=== PATIENT | female | born 1985 | race Caucasian/White ===

== ENCOUNTER 2016-06-26 16:42 | Outpatient (CLI) | payer MEDICAID | END 2016-06-26 16:43 | disposition home or self-care (01) | DX: R10.2 Pelvic and perineal pain (principal); Z90.710 Acquired absence of both cervix and uterus ==

== ENCOUNTER 2017-04-25 15:17 | Outpatient (CLI) | payer MEDICAID ==
--- NOTE | 2017-04-26 11:52 | XRAY Report ---
DATE OF SERVICE: 04/25/2017 BILATERAL FEET: 04/25/2017 COMPARISON: None. INDICATION: Bilateral foot pain. Calcaneus pain without trauma, left worse than right. TECHNIQUE: Three views of each foot. FINDINGS: Normal alignment. No evidence of acute fracture. No degenerative changes. Soft tissues grossly unremarkable. IMPRESSION: NEGATIVE FEET. TD: 04[facility]25/2017 18:29 [facility]
== END 2017-04-25 15:18 | disposition home or self-care (01) ==
LOC: DI 15:17
PROVIDERS: ATTEND Podiatrist
DX: M79.672 Pain in left foot (principal); M79.671 Pain in right foot

== ENCOUNTER 2017-07-31 17:16 | Emergency (ER) | payer MEDICAID ==
--- NOTE | 2017-07-31 18:03 | ED Physician Documentation ---
PD HPI ABD PAIN - Stated complaint Stated Complaint: RUQ PX - Chief complaint Chief Complaint: Abd Pain - History obtained from History obtained from: Patient - History of Present Illness Timing - onset: Last night (about 4 am, abrupt onset and has persisted. Worse with attempted eating.) Timing - duration: Hours Timing - details: Abrupt onset, Still present Quality: Aching, Sharp, Pain Location: RUQ Radiation: Upper back Improved by: No: Eating, Vomiting Worsened by: Eating, Moving, Palpation. No: Breathing Associated symptoms: Nausea, Vomiting (couple times). No: Fever, Hematemesis, Diarrhea, Dysuria Similar symptoms before: Has not had sx before (not this pain but does get heartburn intermittently) Recently seen: Not recently seen Review of Systems Constitutional: denies: Fever, Chills Nose: denies: Rhinorrhea / runny nose, Congestion Throat: denies: Sore throat Respiratory: denies: Cough GI: reports: Abdominal Pain, Nausea. 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 HEENT: Tonsil/Adenoidectomy - Present Medications Home Medications: Ambulatory Orders Medication Instructions Recorded Confirmed Famotidine [Pepcid] 20 mg PO ONCE #20 tablet 07/31/17 Fluticasone [Flonase] 07/31/17 Loratadine 10 mg PO 07/31/17 Sucralfate 1 gm PO QID #20 tablet 07/31/17 Tramadol HCl 50 mg PO Q6H PRN #20 tablet 07/31/17 - Allergies Allergies/Adverse Reactions: Allergies Allergy/AdvReac Type Severity Reaction Status Date / Time Penicillins AdvReac Intermediate Nausea Verified 10/12/15 13:59 - Social History Does the pt smoke?: No Smoking Status: Never smoker Does the pt drink ETOH?: No Does the pt have substance abuse?: No - Immunizations Immunizations are current?: Yes PD ED PE NORMAL - Vitals Vital signs reviewed: Yes - General General: Alert and oriented X 3, Well developed/nourished, Other (appears in pain in upper abd. ) - HEENT HEENT: PERRL, EOMI (nonicteric), Pharynx benign - Neck Neck: Supple, no meningeal sign, No adenopathy - Cardiac Cardiac: RRR, No murmur - Respiratory Respiratory: Clear bilaterally - Abdomen Abdomen: Normal bowel sounds, Non distended, No organomegaly, Other (tender RUQ with local guarding and rebound. No percussion tenderness. She is markedly obese. ) - Female Female : Deferred - Rectal Rectal: Deferred - Derm Derm: Normal color, Warm and dry - Extremities Extremities: No tenderness to palpate, Normal ROM s pain, No edema, No calf tenderness / cord - Neuro Neuro: Alert and oriented X 3, No motor deficit, Normal speech Results - Vitals Vitals: Oxygen O2 Source Room air - Labs Labs: Laboratory Tests 07/31/17 07/31/17 07/31/17 18:35 18:35 19:47 WBC 11.3 H RBC 4.67 Hgb 13.0 Hct 38.9 MCV 83.3 MCH 27.8 MCHC 33.3 RDW 13.2 Plt Count 271 MPV 8.0 Neut # 9.9 H Lymph # 0.9 L [place] # 0.4 Eos # 0.0 Baso # 0.0 Absolute Nucleated RBC 0.00 Nucleated RBC % 0.0 Sodium 133 L Potassium 3.5 Chloride 103 Carbon Dioxide 21 Anion Gap 9.0 BUN 16 Creatinine 0.8 Estimated GFR (MDRD) 83 L Glucose 87 Calcium 8.3 L Total Bilirubin 0.9 AST 23 ALT 26 Alkaline Phosphatase 58 Total Protein 7.6 Albumin 4.3 Globulin 3.3 Albumin/Globulin Ratio 1.3 Lipase 17 L Urine Color ORANGE Urine Clarity CLEAR Urine pH 5.5 Ur Specific [place] >=1.030 H Urine Protein TRACE Urine Glucose (UA) NEGATIVE Urine Ketones 40 H Urine Occult Blood NEGATIVE Urine Nitrite NEGATIVE Urine Bilirubin NEGATIVE Urine Urobilinogen 0.2 (NORMAL) Ur Leukocyte Esterase NEGATIVE Ur Microscopic Review NOT INDICATED Urine Culture Comments NOT INDICATED - Rads (name of study) RUQ U/S Radiology: Prelim report reviewed (normal gallbladder study) PD MEDICAL DECISION MAKING - ED course Complexity details: re-evaluated patient (improved with pain meds and antiemetics. ), considered differential (Seemed like it would be gallbladder but US is normal and labs are okay, so presume gastritis/duodenitis. ), d/w patient Departure - Departure Disposition: 01 Home, Self Care Clinical Impression: Upper abdominal pain, Gastritis/duodenitis Condition: Stable Record reviewed to determine appropriate education?: Yes Instructions: ED Gastritis Follow-Up: Chinmay Rios MD [Primary Care Provider] - Prescriptions: Famotidine [Pepcid] 20 mg PO ONCE #20 tablet Sucralfate 1 gm PO QID #20 tablet Tramadol HCl 50 mg PO Q6H PRN #20 tablet PRN Reason: Pain Comments: Your ultrasound appears normal. The blood tests are normal as well. Does not appear to be gallbladder, liver or pancreas. I presume then the stomach or the initial part of the intestine call the duodenum is irritated. Use famotidine daily for the next couple of weeks. Add sucralfate to coat the area 3 or 4 times a day for the next 5 or 6 days. Add Tylenol or tramadol if needed for pain. Recheck if not improved over the next several days to week. Discharge Date/Time: 07/31/17 21:03
[2017-07-31] MEDS ORDERED: HYDROmorphone 1 MG/ML CARPUJECT IVP STA (18:23)
[2017-07-31] MEDS ORDERED: ONDANSETRON 4 MG/2 ML VIAL IVP STA (18:23)
[2017-07-31 18:44] LABS: BASOPHILS % (AUTO) 0.3 %; EOSINOPHILS % (AUTO) 0.2 %; LYMPHOCYTES # (AUTO) 0.9 10^3/uL (1.5-3.5); LYMPHOCYTES % (AUTO) 7.6 %; MEAN CORPUSCULAR HEMOGLOBIN 27.8 pg (27.0-31.0); MEAN CORPUSCULAR HGB CONC 33.3 g/dL (32.0-36.0); MEAN CORPUSCULAR VOLUME 83.3 fL (81.0-99.0); MONOCYTES # (AUTO) 0.4 10^3/uL (0.0-1.0); MONOCYTES % (AUTO) 3.5 %; NEUTROPHILS # (AUTO) 9.9 10^3/uL (1.5-6.6); NEUTROPHILS % (AUTO) 88.4 %; PLT - PLATELET COUNT 271 10^3/uL (130-450); RED BLOOD COUNT 4.67 10^6/uL (4.20-5.40); RED CELL DISTRIBUTION WIDTH 13.2 % (12.0-15.0); WHITE BLOOD COUNT 11.3 x10^3/uL (4.8-10.8)
[2017-07-31 18:57] LABS: ALBUMIN 4.3 g/dL (3.2-5.5); ALBUMIN/GLOBULIN RATIO 1.3 (1.0-2.2); BILIRUBIN,TOTAL 0.9 mg/dL (0.2-1.0); CALCIUM 8.3 mg/dL (8.5-10.3); CREATININE 0.8 mg/dL (0.4-1.0); TOTAL PROTEIN 7.6 g/dL (6.7-8.2)
--- NOTE | 2017-07-31 19:47 | Ultrasound Preliminary Report ---
Exam: US ABDOMEN LIMITED IMPRESSION: 1. Hepatomegaly with fatty infiltration. 2. No cholelithiasis nor cholecystitis. [facility] SITE ID: [id number]
--- NOTE | 2017-07-31 19:51 | Ultrasound Report ---
EXAM: ABDOMEN ULTRASOUND LIMITED, RUQ EXAM DATE: 07/31/2017 07:07 PM. CLINICAL HISTORY: Right upper quadrant pain which began earlier today. COMPARISON: None. TECHNIQUE: Real-time scanning was performed with static images obtained. FINDINGS: Liver: Uniform increased echogenicity. 20.5 cm. Main portal vein flow: Hepatopetal. Gallbladder: Normal. No stones, wall thickening, or sonographic Miranda's sign. Biliary System: CBD measures 4.0 mm. No intrahepatic or extrahepatic ductal dilatation. Other: Normal right kidney. No free fluid. IMPRESSION: 1. Hepatomegaly with fatty infiltration. 2. No cholelithiasis nor cholecystitis. [facility] Referring Provider Line: [phone] SITE ID: [id number]
[2017-07-31 20:01] LABS: GLUCOSE, URINE (UA) NEGATIVE (NEGATIVE); KETONES,URINE (UA) 40 mg/dL (NEGATIVE); LEUKOCYTE ESTERASE, URINE NEGATIVE (NEGATIVE); NITRITE,URINE NEGATIVE (NEGATIVE); OCCULT BLOOD,URINE NEGATIVE (NEGATIVE); PH,URINE 5.5 PH (5.0-7.5); PROTEIN,URINE TRACE mg/dL (NEGATIVE); UROBILINOGEN,URINE 0.2 (NORMAL) E.U./dL (NORMAL)
[2017-07-31 20:15] LABS: BILIRUBIN,URINE NEGATIVE (NEGATIVE); CLARITY,URINE CLEAR (CLEAR); ICTOTEST,URINE NEGATIVE
[2017-07-31] MEDS ORDERED: FAMOTIDINE 20 MG TABLET PO STA (20:46)
[2017-07-31] MEDS ORDERED: SUCRALFATE 1 GM/10 ML UDC PO STA (20:46)
[2017-07-31 21:27] VITALS: BP 138/76
== END 2017-07-31 21:03 | disposition home or self-care (01) ==
LOC: ED 17:16
DX: R10.11 Right upper quadrant pain (principal); K29.70 Gastritis, unspecified, without bleeding; K29.80 Duodenitis without bleeding
CPT/HCPCS: 36415; 76705; 80053; 81003; 83690; 85025; 96374; 99283; A9270; J1170; 81001; 87086

== ENCOUNTER 2018-02-13 16:06 | Emergency (ER) | payer MEDICAID ==
--- NOTE | 2018-02-13 18:21 | ED Physician Documentation ---
PD HPI URI - Stated complaint Stated Complaint: FEVER/LUNG PX/RT EAR PX/COUGH - Chief complaint Chief Complaint: Fever - History obtained from History obtained from: Patient - History of Present Illness Timing - onset: How many weeks ago (1) Timing duration: Weeks (1) Timing details: Gradual onset, Still present (was ill with congestion and cough, fevers, malaise last week and was feeling improved for 1-2 days, then with fevers and aches again and right ear pain now.) Associated symptoms: Fever, Chills, Ear pain (right), Sore throat, Dry cough. No: Nasal congestion, Swollen nodes Contributing factors: No: Sick contact, COPD / asthma Similar symptoms before: Has not had sx before Recently seen: Not recently seen Review of Systems Constitutional: reports: Fever, Chills, Myalgias Ears: reports: Ear pain (for 1-2 days) Nose: reports: Rhinorrhea / runny nose, Congestion. denies: Sinus pressure / pain Throat: reports: Sore throat Respiratory: reports: Cough GI: denies: Nausea, Vomiting, Diarrhea Neurologic: reports: Generalized weakness. 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 HEENT: Tonsil/Adenoidectomy - Present Medications Home Medications: Ambulatory Orders Medication Instructions Recorded Confirmed Azithromycin [Zithromax] 250 mg PO DAILY #4 tablet 02/13/18 Benzonatate [Tessalon] 100 mg PO TID PRN #25 capsule 02/13/18 Dexamethasone [Decadron] 4 mg PO DAILY #5 tablet 02/13/18 guaiFENesin/CODEINE [Robitussin AC] 10 ml PO Q6H PRN #240 ml 02/13/18 - Allergies Allergies/Adverse Reactions: Allergies Allergy/AdvReac Type Severity Reaction Status Date / Time Penicillins AdvReac Intermediate Nausea Verified 02/13/18 16:13 - Social History Does the pt smoke?: No Smoking Status: Never smoker Does the pt drink ETOH?: No Does the pt have substance abuse?: No - Immunizations Immunizations are current?: Yes - POLST Patient has POLST: No PD ED PE NORMAL - Vitals Vital signs reviewed: Yes - General General: Alert and oriented X 3, Well developed/nourished - HEENT HEENT: Pharynx benign. No: Ears normal (left is good; right with redness and distorted landmarks.) - Neck Neck: Supple, no meningeal sign, No adenopathy - Cardiac Cardiac: RRR, No murmur - Respiratory Respiratory: Clear bilaterally - Derm Derm: Normal color, Warm and dry, No rash Results - Vitals Vitals: Oxygen O2 Source Room air - Labs Labs: Laboratory Tests 02/13/18 16:15 Influenza A (Rapid) Negative Influenza B (Rapid) Negative PD MEDICAL DECISION MAKING - ED course Complexity details: considered differential, d/w patient Departure - Departure Disposition: 01 Home, Self Care Clinical Impression: Ear infection Upper respiratory infection Qualifiers: URI type: unspecified URI Qualified Code(s): J06.9 - Acute upper respiratory infection, unspecified Condition: Stable Record reviewed to determine appropriate education?: Yes Instructions: ED Upper Resp Infec Abx Tx Follow-Up: Chinmay Rios MD [Primary Care Provider] - Prescriptions: Azithromycin [Zithromax] 250 mg PO DAILY #4 tablet Benzonatate [Tessalon] 100 mg PO TID PRN #25 capsule PRN Reason: Cough Dexamethasone [Decadron] 4 mg PO DAILY #5 tablet guaiFENesin/CODEINE [Robitussin AC] 10 ml PO Q6H PRN #240 ml PRN Reason: Cough Comments: I would suggest using your albuterol inhaler 2-3 puffs 4 times a day for the next several days to week to help reduce cough and improve breathing. Add Decadron steroid anti-inflammatory daily. You do have signs of an ear infection on that one side so was also given some Zithromax antibiotic for that. Overall is likely a viral illness. For the cough itself he can use Tessalon and cough medicine to try to improve that. Recheck if not improving over the next several days to week. Discharge Date/Time: 02/13/18 19:14
[2018-02-13] MEDS ORDERED: BENZONATATE 100 MG CAPSULE PO STA (18:41)
[2018-02-13] MEDS ORDERED: DEXAMETHASONE 10 MG/ML VIAL PO STA (18:41)
[2018-02-13] MEDS ORDERED: AZITHROMYCIN 250 MG TABLET PO STA (18:47)
[2018-02-13 19:13] VITALS: BP 138/90
== END 2018-02-13 19:14 | disposition home or self-care (01) ==
LOC: ED 16:06
DX: H66.90 Otitis media, unspecified, unspecified ear (principal); J06.9 Acute upper respiratory infection, unspecified
CPT/HCPCS: 87275; 87276; 99283; A9270

== ENCOUNTER 2020-10-28 11:41 | Emergency (ER) | payer BC, MEDICAID ==
[2020-10-28 12:01] VITALS: BP 171/116
[2020-10-28 12:15] LABS: BASOPHILS % (AUTO) 0.3 %; EOSINOPHILS # (AUTO) 0.1 10^3/uL (0.0-0.7); EOSINOPHILS % (AUTO) 1.9 %; HCT - HEMATOCRIT 43.5 % (37.0-47.0); HGB - HEMOGLOBIN 14.5 g/dL (12.0-16.0); LYMPHOCYTES # (AUTO) 1.4 10^3/uL (1.5-3.5); LYMPHOCYTES % (AUTO) 22.7 %; MEAN CORPUSCULAR HEMOGLOBIN 28.9 pg (27.0-31.0); MEAN CORPUSCULAR HGB CONC 33.3 g/dL (32.0-36.0); MEAN CORPUSCULAR VOLUME 86.8 fL (81.0-99.0); MEAN PLATELET VOLUME 9.3 fL (7.9-10.8); MONOCYTES # (AUTO) 0.5 10^3/uL (0.0-1.0); MONOCYTES % (AUTO) 7.6 %; NEUTROPHILS # (AUTO) 4.1 10^3/uL (1.5-6.6); PLT - PLATELET COUNT 256 10^3/uL (130-450); RED BLOOD COUNT 5.01 10^6/uL (4.20-5.40); RED CELL DISTRIBUTION WIDTH 12.7 % (12.0-15.0); WHITE BLOOD COUNT 6.2 x10^3/uL (4.8-10.8)
[2020-10-28 12:30] LABS: ALBUMIN 4.1 g/dL (3.2-5.5); ALBUMIN/GLOBULIN RATIO 1.1 (1.0-2.2); BILIRUBIN,TOTAL 0.6 mg/dL (0.2-1.0); CALCIUM 8.9 mg/dL (8.5-10.3); CREATININE 0.9 mg/dL (0.4-1.0); POTASSIUM 3.6 mmol/L (3.5-5.0); TOTAL PROTEIN 7.7 g/dL (6.7-8.2)
[2020-10-28] MEDS ORDERED: ONDANSETRON ODT 4 MG TABLET TL STA (14:41)
[2020-10-28] MEDS ORDERED: DICYCLOMINE 10 MG CAPSULE PO STA (14:41)
--- NOTE | 2020-10-28 14:41 | ED Physician Documentation ---
PD HPI ABD PAIN - Stated complaint Stated Complaint: N/V/D FEVER - Chief complaint Chief Complaint: Abd Pain - History obtained from History obtained from: Patient - Additional information Additional information: She and her girlfriend at the same time became sick 2 days ago with stomach cramps, fever, vomiting and diarrhea. She is actually a lot better today, but still feeling nauseous and crampy. The diarrhea has abated. No blood from either end. No myalgias or respiratory symptoms. Had second mRNA Covid shot about 3 weeks ago. 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 HEENT: Tonsil/Adenoidectomy - Present Medications Home Medications: Ambulatory Orders Medication Instructions Recorded Confirmed Azithromycin [Zithromax] 250 mg PO DAILY #4 tablet 02/13/18 Benzonatate [Tessalon] 100 mg PO TID PRN #25 capsule 02/13/18 dexAMETHasone [Decadron] 4 mg PO DAILY #5 tablet 02/13/18 guaiFENesin/CODEINE [Robitussin AC] 10 ml PO Q6H PRN #240 ml 02/13/18 Dicyclomine [Bentyl] 1 - 2 tab PO QID PRN #20 cap 10/28/20 Loperamide [Imodium] 2 mg PO QID PRN #10 cap 10/28/20 Ondansetron Odt [Zofran] 4 mg TL Q6H PRN #10 tablet 10/28/20 - Allergies Allergies/Adverse Reactions: Allergies Allergy/AdvReac Type Severity Reaction Status Date / Time Penicillins AdvReac Intermediate Nausea Verified 10/28/20 12:01 - Social History Does the pt smoke?: No Smoking Status: Never smoker Does the pt drink ETOH?: No Does the pt have substance abuse?: No - Immunizations Immunizations are current?: Yes - POLST Patient has POLST: No PD ED PE NORMAL - Vitals Vital signs reviewed: Yes - General General: Alert and oriented X 3, No acute distress - HEENT HEENT: Pharynx benign - Neck Neck: Supple, no meningeal sign, No bony TTP - Cardiac Cardiac: RRR, No murmur - Respiratory Respiratory: No respiratory distress, Clear bilaterally - Abdomen Abdomen: Normal bowel sounds, Soft, Non tender - Neuro Neuro: Alert and oriented X 3, Normal speech Results - Vitals Vitals: Vital Signs - 24 hr 10/28/20 11:58 Temperature 36.1 C L Heart Rate 91 Respiratory 20 Rate Blood Pressure 171/116 H O2 Saturation 98 Oxygen O2 Source Room air - Labs Labs: Laboratory Tests 10/28/20 10/28/20 12:10 12:10 WBC 6.2 RBC 5.01 Hgb 14.5 Hct 43.5 MCV 86.8 MCH 28.9 MCHC 33.3 RDW 12.7 Plt Count 256 MPV 9.3 Neut # (Auto) 4.1 Lymph # (Auto) 1.4 L [place] # (Auto) 0.5 Eos # (Auto) 0.1 Baso # (Auto) 0.0 Absolute Nucleated RBC 0.00 Nucleated RBC % 0.0 Sodium 136 Potassium 3.6 Chloride 104 Carbon Dioxide 24 Anion Gap 8.0 BUN 10 Creatinine 0.9 Estimated GFR (MDRD) 71 L Glucose 100 Calcium 8.9 Total Bilirubin 0.6 AST 25 ALT 28 Alkaline Phosphatase 58 Total Protein 7.7 Albumin 4.1 Globulin 3.6 Albumin/Globulin Ratio 1.1 Lipase 73 H PD MEDICAL DECISION MAKING - ED course ED course: She has what sounds like viral gastroenteritis with resolving symptoms and benign examination and labs. I offered IV fluids but she declined and would like to just have some oral medications and she needs a work note. Departure - Departure Disposition: 01 Home, Self Care Clinical Impression: Gastroenteritis Condition: Good Record reviewed to determine appropriate education?: Yes Instructions: ED Gastroenteritis Viral Prescriptions: Dicyclomine [Bentyl] 1 - 2 tab PO QID PRN #20 cap PRN Reason: Abdominal Pain Loperamide [Imodium] 2 mg PO QID PRN #10 cap PRN Reason: Diarrhea Ondansetron Odt [Zofran] 4 mg TL Q6H PRN #10 tablet PRN Reason: Nausea / Vomiting Forms: Activity restrictions, Watchful Waiting
== END 2020-10-28 14:49 | disposition home or self-care (01) ==
LOC: ED 11:41
DX: K52.9 Noninfective gastroenteritis and colitis, unspecified (principal)
CPT/HCPCS: 36415; 80053; 83690; 85025; 99283; A9270; Q0162

== ENCOUNTER 2022-04-04 07:00 | Outpatient (CLI) | payer BC ==
--- NOTE | 2022-04-04 21:49 | XRAY Report ---
PROCEDURE: Chest 2 View X-Ray INDICATIONS: Cough TECHNIQUE: 2 views of the chest were acquired. COMPARISON: None. FINDINGS: Surgical changes and devices: None. Lungs and pleura: No pleural effusions or pneumothorax. Lungs are clear. Mediastinum: Mediastinal contours are normal. Heart size is normal. Bones and chest wall: No suspicious bony abnormalities. Soft tissues appear unremarkable. IMPRESSION: No acute finding. Reviewed by: Elmer Herman MD on 04/04/2022 9:47 PM [facility] Approved by: Elmer Herman MD on 04/04/2022 9:47 PM PST Station ID: [id number]
== END 2022-04-04 23:59 | disposition home or self-care (01) ==
LOC: DI.N 07:00
PROVIDERS: ATTEND Registered Nurse
DX: R05.1 Acute cough (principal)

== ENCOUNTER 2023-11-27 20:25 | Emergency (ER) | payer BC, OTHER ==
[2023-11-27] MEDS: ACETAMINOPHEN 500 MG TABLET PO STA (21:30)
[2023-11-27 21:31] LABS: BILIRUBIN,URINE NEGATIVE (NEGATIVE); GLUCOSE, URINE (UA) NEGATIVE (NEGATIVE); KETONES,URINE (UA) NEGATIVE (NEGATIVE); LEUKOCYTE ESTERASE, URINE NEGATIVE (NEGATIVE); NITRITE,URINE NEGATIVE (NEGATIVE); OCCULT BLOOD,URINE NEGATIVE (NEGATIVE); PROTEIN,URINE NEGATIVE (NEGATIVE); UROBILINOGEN,URINE 0.2 (NORMAL) E.U./dL (NORMAL)
[2023-11-27] MEDS: SODIUM CHLORIDE 0.9% 1,000 ML IV STA (21:31)
[2023-11-27 21:34] LABS: HCG UR QUAL NEGATIVE
[2023-11-27 21:35] LABS: CLARITY,URINE CLEAR (CLEAR)
[2023-11-27 21:50] LABS: BASOPHILS % (AUTO) 0.2 %; EOSINOPHILS # (AUTO) 0.1 10^3/uL (0.0-0.7); EOSINOPHILS % (AUTO) 0.6 %; HCT - HEMATOCRIT 38.7 % (37.0-47.0); HGB - HEMOGLOBIN 12.6 g/dL (12.0-16.0); LYMPHOCYTES # (AUTO) 1.5 10^3/uL (1.5-3.5); LYMPHOCYTES % (AUTO) 8.8 %; MEAN CORPUSCULAR HGB CONC 32.6 g/dL (32.0-36.0); MEAN PLATELET VOLUME 9.8 fL (7.9-10.8); MONOCYTES # (AUTO) 1.1 10^3/uL (0.0-1.0); MONOCYTES % (AUTO) 6.5 %; NEUTROPHILS # (AUTO) 14.6 10^3/uL (1.5-6.6); NEUTROPHILS % (AUTO) 83.4 %; PLT - PLATELET COUNT 322 10^3/uL (130-450); RED BLOOD COUNT 4.35 10^6/uL (4.20-5.40); WHITE BLOOD COUNT 17.5 x10^3/uL (4.8-10.8)
[2023-11-27 21:54] LABS: ALBUMIN 3.9 g/dL (3.2-5.5); ALBUMIN/GLOBULIN RATIO 1.4 (1.0-2.2); BILIRUBIN,TOTAL 0.5 mg/dL (0.2-1.0); CALCIUM 8.8 mg/dL (8.5-10.3); CREATININE 0.7 mg/dL (0.6-1.3); POTASSIUM 3.3 mmol/L (3.5-4.5); TOTAL PROTEIN 6.7 g/dL (6.4-8.9)
[2023-11-27] MEDS ORDERED: iohexoL-300 100 ML VIAL ONE (22:32)
[2023-11-27 22:35] LABS: B. PARAPERTUSSIS- RESP PCR PAN NOT DETECTED; B. PERTUSSIS- RESP PCR PANEL NOT DETECTED; C. PNEUMONIAE- RESP PCR PANEL NOT DETECTED; CORONAVIRUS 229E-RESP PCR NOT DETECTED; CORONAVIRUS HKU1-RESP PCR NOT DETECTED; CORONAVIRUS NL63-RESP PCR NOT DETECTED; CORONAVIRUS OC43-RESP PCR NOT DETECTED; HUMAN METAPNEUMOVIRUS NOT DETECTED; INFLUENZA A- RESP PCR PANEL NOT DETECTED; INFLUENZA B - RESP PCR PANEL NOT DETECTED; M. PNEUMONIAE- RESP PCR PANEL NOT DETECTED; PARAINFLUENZA VIRUS 1 NOT DETECTED; PARAINFLUENZA VIRUS 2 NOT DETECTED; PARAINFLUENZA VIRUS 3 NOT DETECTED; PARAINFLUENZA VIRUS 4 NOT DETECTED; RHINOVIRUS/ENTEROVIRUS NOT DETECTED; RSV- RESP PCR PANEL NOT DETECTED; SARS-CoV-2 -RESP PCR PANEL NOT DETECTED
[2023-11-27] MEDS: iohexoL-300 100 ML VIAL IVP ONE (22:46)
[2023-11-27] MEDS: HYDROmorphone 0.5 MG/0.5 ML SYRINGE IVP STA (23:05)
[2023-11-27 23:31] VITALS: O2SAT 98
--- NOTE | 2023-11-27 23:40 | CT Report ---
PROCEDURE: Abdomen/Pelvis W INDICATIONS: RLQ pain CONTRAST: Omni 300, 100mls TECHNIQUE: After the administration of intravenous contrast, a CT scan of the abdomen and pelvis was performed. Images were recorded and evaluated at appropriate window settings. Reformats: coronal and sagittal. F or radiation dose reduction, the following was used: automated exposure control, adjustment of mA and /or kV according to patient size. COMPARISON: None. FINDINGS: Image quality: Diagnostic. Lower chest: Unremarkable. Liver: No solid mass. Gallbladder: No radiopaque stones or wall thickening. Biliary tree: No intrahepatic or extrahepatic dilation, accounting for age. Spleen: No splenomegaly. Pancreas: No pancreatic ductal dilation. Adrenals: No adrenal nodule. Kidneys and ureters: No hydronephrosis. No renal cystic lesion which requires follow up. No solid mas s. Stomach, bowel and peritoneum: No gastric or small bowel dilation. No abnormal wall thickening. No pa thologic free fluid. Normal appendix. Lymph nodes: No central or retroperitoneal adenopathy. Vessels: No infrarenal aortic aneurysm. Patent portal vein. PELVIS Reproductive organs: Uterus is absent. Bladder: No abnormal wall thickening, accounting for underdistention. Pelvic lymph nodes: No pelvic adenopathy by size criteria. Bones: No aggressive osseous abnormality. Other: No significant ventral or inguinal hernia. IMPRESSION: The appendix is not dilated. No free fluid. No hydronephrosis. Reviewed by: Toni Terry MD on 11/27/2023 11:39 PM PDT Approved by: Toni Terry MD on 11/27/2023 11:39 PM PDT Station ID: [id number]
--- NOTE | 2023-11-28 00:23 | ED Physician Documentation ---
PD HPI ABD PAIN - Stated complaint Stated Complaint: ABD PX/CHILLS - Chief complaint Chief Complaint: Abd Pain - History obtained from History obtained from: Patient - Additional information Additional information: The patient comes to the emergency department chief complaint of onset of right lower quadrant pain, fever, chills, and aches today. She states she had been feeling fine earlier. She states the pain is resolving somewhat now. No nausea or vomiting. No dysuria or vaginal symptoms. She has had a hysterectomy but still has her ovaries. No other surgeries on her abdomen. 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 HEENT: Tonsil/Adenoidectomy - Present Medications Home Medications: Ambulatory Orders Medication Instructions Recorded Confirmed Azithromycin [Zithromax] 250 mg PO DAILY #4 tablet 02/13/18 Benzonatate [Tessalon] 100 mg PO TID PRN #25 capsule 02/13/18 dexAMETHasone [Decadron] 4 mg PO DAILY #5 tablet 02/13/18 guaiFENesin/CODEINE [Robitussin AC] 10 ml PO Q6H PRN #240 ml 02/13/18 Dicyclomine [Bentyl] 1 - 2 tab PO QID PRN #20 cap 10/28/20 Loperamide [Imodium] 2 mg PO QID PRN #10 cap 10/28/20 Ondansetron Odt [Zofran] 4 mg TL Q6H PRN #10 tablet 10/28/20 - Allergies Allergies/Adverse Reactions: Allergies Allergy/AdvReac Type Severity Reaction Status Date / Time amoxicillin Allergy Hives Verified 11/27/23 20:33 Penicillins AdvReac Intermediate Nausea Verified 10/28/20 12:01 - Social History Does the pt smoke?: No Smoking Status: Never smoker Does the pt drink ETOH?: No Does the pt have substance abuse?: No - Immunizations Immunizations are current?: Yes - POLST Patient has POLST: No PD ED PE NORMAL - Vitals Vital signs reviewed: Yes - General General: Alert and oriented X 3, No acute distress, Well developed/nourished - HEENT HEENT: Atraumatic, EOMI, Moist mucous membranes - Neck Neck: Supple, no meningeal sign - Cardiac Cardiac: RRR, No murmur - Respiratory Respiratory: No respiratory distress, Clear bilaterally - Abdomen Abdomen: Soft, Non distended, Other (Mild tenderness right lower quadrant, no rebound or guarding.) - Derm Derm: Normal color, Warm and dry, No rash - Extremities Extremities: No deformity, No edema - Neuro Neuro: Alert and oriented X 3 - Psych Psych: Normal mood, Normal affect Results - Vitals Vitals: Vital Signs - 24 hr 11/27/23 11/27/23 11/27/23 20:29 21:34 22:00 Temperature 38.3 C H 37.2 C Heart Rate 132 H 103 H Respiratory 20 18 Rate Blood Pressure 160/118 H 165/91 H O2 Saturation 98 99 11/27/23 23:00 Temperature 36.8 C Heart Rate 96 Respiratory 18 Rate Blood Pressure 153/87 H O2 Saturation 98 Oxygen O2 Source Room air - Labs Labs: Laboratory Tests 11/27/23 11/27/23 11/27/23 21:01 21:01 21:01 WBC RBC Hgb Hct MCV MCH MCHC RDW Plt Count MPV Neut # (Auto) Lymph # (Auto) [place] # (Auto) Eos # (Auto) Baso # (Auto) Absolute Nucleated RBC Nucleated RBC % Sodium Potassium Chloride Carbon Dioxide Anion Gap BUN Creatinine Estimated GFR (MDRD) Glucose Lactic Acid Calcium Total Bilirubin AST ALT Alkaline Phosphatase Total Protein Albumin Globulin Albumin/Globulin Ratio Lipase Urine Color YELLOW Urine Clarity CLEAR Urine pH 6.0 Ur Specific [place] 1.020 Urine Protein NEGATIVE Urine Glucose (UA) NEGATIVE Urine Ketones NEGATIVE Urine Occult Blood NEGATIVE Urine Nitrite NEGATIVE Urine Bilirubin NEGATIVE Urine Urobilinogen 0.2 (NORMAL) Ur Leukocyte Esterase NEGATIVE Ur Microscopic Review NOT INDICATED Urine Culture Comments NOT INDICATED Urine HCG, Qual NEGATIVE Nasal Adenovirus (PCR) NOT DETECTED Nasal B. parapertussis DNA (PCR) NOT DETECTED Nasal Coronavir 229E PCR NOT DETECTED Nasal Coronavir HKU1 PCR NOT DETECTED Nasal Coronavir NL63 PCR NOT DETECTED Nasal Coronavir OC43 PCR NOT DETECTED Nasal Enterovir/Rhinovir PCR NOT DETECTED Nasal Influenza B PCR NOT DETECTED Nasal Influenza A PCR NOT DETECTED Nasal Parainfluen 1 PCR NOT DETECTED Nasal Parainfluen 2 PCR NOT DETECTED Nasal Parainfluen 3 PCR NOT DETECTED Nasal Parainfluen 4 PCR NOT DETECTED Nasal RSV (PCR) NOT DETECTED Nasal B.pertussis DNA PCR NOT DETECTED Nasal C.pneumoniae (PCR) NOT DETECTED Harley Human Metapneumo PCR NOT DETECTED Nasal M.pneumoniae (PCR) NOT DETECTED Nasal SARS-CoV-2 (PCR) NOT DETECTED 11/27/23 11/27/23 11/27/23 21:35 21:35 21:35 WBC 17.5 H RBC 4.35 Hgb 12.6 Hct 38.7 MCV 89.0 MCH 29.0 MCHC 32.6 RDW 12.0 Plt Count 322 MPV 9.8 Neut # (Auto) 14.6 H Lymph # (Auto) 1.5 [place] # (Auto) 1.1 H Eos # (Auto) 0.1 Baso # (Auto) 0.0 Absolute Nucleated RBC 0.00 Nucleated RBC % 0.0 Sodium 135 Potassium 3.3 L Chloride 104 Carbon Dioxide 25 Anion Gap 6.0 BUN 9 Creatinine 0.7 Estimated GFR (MDRD) 94 Glucose 100 Lactic Acid 1.0 Calcium 8.8 Total Bilirubin 0.5 AST 16 ALT 23 Alkaline Phosphatase 64 Total Protein 6.7 Albumin 3.9 Globulin 2.8 Albumin/Globulin Ratio 1.4 Lipase 15 Urine Color Urine Clarity Urine pH Ur Specific [place] Urine Protein Urine Glucose (UA) Urine Ketones Urine Occult Blood Urine Nitrite Urine Bilirubin Urine Urobilinogen Ur Leukocyte Esterase Ur Microscopic Review Urine Culture Comments Urine HCG, Qual Nasal Adenovirus (PCR) Nasal B. parapertussis DNA (PCR) Nasal Coronavir 229E PCR Nasal Coronavir HKU1 PCR Nasal Coronavir NL63 PCR Nasal Coronavir OC43 PCR Nasal Enterovir/Rhinovir PCR Nasal Influenza B PCR Nasal Influenza A PCR Nasal Parainfluen 1 PCR Nasal Parainfluen 2 PCR Nasal Parainfluen 3 PCR Nasal Parainfluen 4 PCR Nasal RSV (PCR) Nasal B.pertussis DNA PCR Nasal C.pneumoniae (PCR) [place] Human Metapneumo PCR Nasal M.pneumoniae (PCR) Nasal SARS-CoV-2 (PCR) - Rads (name of study) CT abdomen and pelvis Relevant Findings:: Final report received, See rad report (neg) PD Medical Decision Making - ED course Complexity details: reviewed results, re-evaluated patient, considered differential, d/w patient ED course: The patient was worked up with labs and urinalysis, and found to have a white blood cell count of 17,000. However, the rest of her labs and her urinalysis were completely normal. The patient was given Tylenol for her fever. I sent her for CT scan of the abdomen and pelvis, given the fever, leukocytosis, and right lower quadrant pain, and this was negative. Respiratory PCR panel was also negative. I discussed with the patient that at this time not entirely sure what is causing her abdominal pain and fever, but nothing is turning up on extensive testing. I have discussed with her that if the pain continues to worsen, she should come and be reevaluated in the emergency department. She should also return if she just feels as though she is generally getting significantly more ill. We discussed symptomatic management at home as well. Departure - Departure Disposition: Home, Self Care Clinical Impression: Abdominal pain Qualifiers: Abdominal location: right lower quadrant Qualified Code(s): R10.31 - Right lower quadrant pain Fever Qualifiers: Fever type: unspecified Qualified Code(s): R50.9 - Fever, unspecified Condition: Stable Instructions: ED Fever Unconf Cause, ED Abdominal Pain Female Non-Specific Abdominal Pain Comments: Your CT scan looks good, and does not show any evidence of appendicitis or any other abnormal or concerning finding in your abdomen. You do have somewhat of an elevated white blood cell count and it is possible that this is due to a viral illness, as your urine is completely normal and there is no other evidence of infection anywhere else. You may develop further symptoms as your illness declares itself but it is important that if you develop increasingly severe right lower abdominal pain or feel as though you are becoming more severely ill, that you return to the emergency department for reevaluation. You may in the meantime take ibuprofen 600 mg every 6 hours and Tylenol/acetaminophen 650 mg every 4 hours, as needed for fever or other discomforts. This will not mask a serious condition.
[2023-11-28 00:43] VITALS: BP 157/79
== END 2023-11-28 00:33 | disposition home or self-care (01) ==
LOC: ED 20:25
DX: R10.31 Right lower quadrant pain (principal); R50.9 Fever, unspecified
CPT/HCPCS: 36415; 80053; 81001; 81003; 81025; 83605; 83690; 85025; 87086; 87633; 96374; 99283

== ENCOUNTER 2024-01-03 07:49 | Outpatient (CLI) | payer OTHER ==
[2024-01-03 12:10] LABS: BASOPHILS % (AUTO) 0.3 %; EOSINOPHILS # (AUTO) 0.2 10^3/uL (0.0-0.7); EOSINOPHILS % (AUTO) 1.8 %; HCT - HEMATOCRIT 41.7 % (37.0-47.0); HGB - HEMOGLOBIN 14.1 g/dL (12.0-16.0); LYMPHOCYTES # (AUTO) 1.8 10^3/uL (1.5-3.5); LYMPHOCYTES % (AUTO) 18.6 %; MEAN CORPUSCULAR HEMOGLOBIN 30.1 pg (27.0-31.0); MEAN CORPUSCULAR HGB CONC 33.8 g/dL (32.0-36.0); MEAN CORPUSCULAR VOLUME 88.9 fL (81.0-99.0); MEAN PLATELET VOLUME 10.2 fL (7.9-10.8); MONOCYTES # (AUTO) 0.7 10^3/uL (0.0-1.0); MONOCYTES % (AUTO) 7.4 %; NEUTROPHILS # (AUTO) 6.8 10^3/uL (1.5-6.6); NEUTROPHILS % (AUTO) 71.5 %; PLT - PLATELET COUNT 332 10^3/uL (130-450); RED BLOOD COUNT 4.69 10^6/uL (4.20-5.40); RED CELL DISTRIBUTION WIDTH 12.5 % (12.0-15.0); WHITE BLOOD COUNT 9.5 x10^3/uL (4.8-10.8)
[2024-01-03 12:28] LABS: % IRON SATURATION 33 % (20-50); ALBUMIN 4.1 g/dL (3.2-5.5); ALBUMIN/GLOBULIN RATIO 1.6 (1.0-2.2); ALKALINE PHOSPHATASE 70 IU/L (42-121); ALT ALANINE AMINOTRANSFERASE 28 IU/L (10-60); AST ASPARTATE AMINOTRANSFERASE 19 IU/L (10-42); BILIRUBIN,TOTAL 0.7 mg/dL (0.2-1.0); BUN - BLOOD UREA NITROGEN 9 mg/dL (6-20); CARBON DIOXIDE - CO2 27 mmol/L (21-32); CHLORIDE 103 mmol/L (101-111); CHOL/HDL RATIO 2.9 (<4.4); CHOLESTEROL 129 mg/dL; CREATININE 0.7 mg/dL (0.6-1.3); GFR - MDRD 93 (>89); GLUCOSE 103 mg/dL (74-104); HDL CHOLESTEROL 44 mg/dL; IRON 72 ug/dL (50-212); LDL CHOLESTEROL,CALCULATED 66 mg/dL; LDL/HDL RATIO 1.5 (<4.4); POTASSIUM 3.7 mmol/L (3.5-4.5); SODIUM 136 mmol/L (135-145); TOTAL IRON BINDING CAPACITY 220 ug/dL (250-450); TOTAL PROTEIN 6.6 g/dL (6.4-8.9); TRANSFERRIN 157 mg/dL (203-362); TRIGLYCERIDES 93 mg/dL; VLDL CHOLESTEROL 19 mg/dL
[2024-01-03 12:39] LABS: THYROID STIMULATING HORMONE 1.19 uIU/mL (0.34-5.60)
[2024-01-03 12:45] LABS: FERRITIN 123.9 ng/mL (11.0-306.8)
== END 2024-01-03 07:50 | disposition home or self-care (01) ==
LOC: LAB.N 07:49
PROVIDERS: ATTEND Physician Assistant
DX: I10 Essential (primary) hypertension (principal); Z13.220 Encounter for screening for lipoid disorders; Z13.29 Encounter for screening for other suspected endocrine disorder; Z83.49 Family history of other endocrine, nutritional and metabolic diseases
CPT/HCPCS: 36415; 80053; 80061; 82728; 83540; 83721; 84443; 84466; 85025